=== PATIENT | female | born 1995 | race Caucasian/White ===

== ENCOUNTER 2017-02-17 20:31 | Emergency (ER) | payer BC ==
[2017-02-17 20:27] LABS: BASOPHIL# 0.1 X10e3 (0-0.3); EOSINOPHIL# 0.3 X10e3 (0-0.7); EOSINOPHIL% 2.2 % (0.0-7.0); HEMATOCRIT 45.9 % (35.0-45.0); HEMOGLOBIN 15.7 gm/dL (12.0-16.0); LYMPHOCYTE# 4.4 X10e3 (1.0-3.5); LYMPHOCYTE% 30.9 % (17.0-45.0); MEAN CORPUSCULAR HEMOGLOBIN 29.4 PG (28-34); MEAN CORPUSCULAR HGB CONC 34.2 g/dL (30-36); MEAN PLATELET VOLUME 10.5 FL (6.5-11.5); MONOCYTE# 1.3 X10e3 (0-1.0); MONOCYTE% 9.2 % (3.0-12.0); NEUTROPHIL# 8.1 X10e3 (1.5-7.1); NEUTROPHIL% 56.7 % (40-75); PLATELET COUNT 427 X10e3 (140-420); RED BLOOD COUNT 5.33 X10e (3.90-5.30); RED CELL DISTRIBUTION WIDTH 13.1 % (11.0-15.5); WHITE BLOOD COUNT 14.2 X10e3 (4.0-10.5)
[2017-02-17 20:29] LABS: ARTERIAL BLD GAS O2 SATURATION 97.1 % (90.0-100.0); ARTERIAL BLOOD GAS CARBOXY HB 0.6 %sat (0.0-9.0); ARTERIAL BLOOD GAS HCO3 22.3 mmol/L; ARTERIAL BLOOD GAS MET HB 0.5 %sat (0.0-2.0); ARTERIAL BLOOD GAS PCO2 33.9 mmHg (35.0-45.0); ARTERIAL BLOOD GAS PO2 96.5 mmHg (80.0-100); ARTERIAL BLOOD GAS pH 7.428 (7.350-7.450)
[2017-02-17 20:30] LABS: ARTERIAL BLOOD GAS ALLEN TEST NORMAL; ARTERIAL BLOOD GAS ART SITE LEFT RADIAL; ARTERIAL BLOOD GAS DELIVERY ROOM AIR; ARTERIAL DRAW? YES
[2017-02-17 20:30] LABS: DIFF IND NO
[~2017-02-17 20:31] MED LIST: BIRTH CONTROL PILL; NAPROSYN500 MG PO; NOVOLOG100 U/M3
[2017-02-17 20:45] LABS: ALBUMIN SERUM 4.2 g/dL (3.5-5.0); BILIRUBIN, DIRECT 0.1 mg/dL (0.0-0.2); BILIRUBIN,INDIRECT 0.3 mg/dL (0.0-0.9); BILIRUBIN,TOTAL 0.4 mg/dL (0.2-2.0); CREATININE SERUM 0.7 mg/dL (0.6-1.4); GLOM FILT RATE Estimated 122.1 mL/min (>60); POTASSIUM 3.3 mmol/L (3.5-5.1); PROTEIN TOTAL SERUM 7.9 g/dL (6.0-8.3)
[2017-02-17 21:08] LABS: URINE SOURCE CLEAN CATCH
[2017-02-17 21:34] LABS: URINE APPEARANCE CLEAR; URINE BILIRUBIN NEG (NEG); URINE BLOOD 2+ (NEG); URINE COLOR YELLOW; URINE GLUCOSE NEG (NEG); URINE KETONE NEG (NEG); URINE LEUKOCYTE ESTERASE NEG (NEG); URINE NITRATE NEG (NEG); URINE PROTEIN NEG (NEG); URINE SPECIFIC GRAVITY 1.017 (1.003-1.035); URINE UROBILINOGEN 0.2 MG/DL (NEG)
[2017-02-17 21:39] LABS: U HYALINE CASTS AUWI 0-2 /[LPF]; URINE BACTERIA AUWI NEG (NEGATIVE); URINE SQUAMOUS EPITHELIAL CELL NONE SEEN /[HPF]; UWBCS1 AUWI 0-2 (0-5)
[2017-02-17 21:45] LABS: CULTURE INDICATED? NO
== END 2017-02-17 23:19 | disposition home or self-care (01) ==
LOC: CED 20:31
PROVIDERS: Student in an Organized Health Care Education/Training Program
DX: E11.65 Type 2 diabetes mellitus with hyperglycemia (principal); E86.0 Dehydration
CPT/HCPCS: 36415; 36600; 80048; 80076; 81003; 82150; 82803; 82947; 83690; 84703; 85025; 96374; 99284; J2405